=== PATIENT | male | born 2000 | race Caucasian/White ===

== ENCOUNTER 2024-10-20 12:27 | Emergency (ER) | payer MEDICAID, OTHER ==
[~2024-10-20] VITALS: Ht 188 cm; Wt 74.0 kg
[2024-10-20 12:27] VITALS: TEMP 98.4
[2024-10-20] MEDS ORDERED: OLOP0.1S7 OP (13:32)
--- NOTE | 2024-10-20 13:40 | ED.PDOC ---
Eye-HPI HPI Comments 24 M presents to the ER w/ no prior MHx associated to the c/c of eye itchiness. Pt reports on having right eye itchiness for 1 week w/ redness. Therapies tried; none Denies vision changes Denies eye discharge Denies hearing changes, nausea, vomiting Denies eye pain with movement, eye pain in general, difficulty keeping eye open, feeling of something stuck in the eye, sensitivity to light Chief Complaint: Eye Problem Time Seen by MD: 13:30 Primary Care Provider: NONE Reviewed Notes: Nurses Notes, Medications, Allergies Allergies: Coded Allergies: NO KNOWN ALLERGIES (Unverified , 12/28/09) Home Meds Active Scripts Olopatadine HCl (Pataday) 0.1 % Adriana, 1 APPLIC OP BID for 7 Days, #5 ML 0 Refills Prov:JULIENNE LANDRUM NP 10/20/24 Information Source: Patient Mode of Arrival: Ambulatory Timing: Days Duration: Since onset, Days Prehospital treatment: None Quality: Red Lids: Red Conjunctiva: Normal Cornea: Right eye Pupils: Normal EOM: Normal Fundus: Normal Slit lamp exam: Normal Anterior chamber: Normal Mouth: Normal ENT Ear Exam: Normal Nose: Normal Sinuses: Normal Oropharynx: Normal Onset: Spontaneous Throat Exposed to: None History of: None Last Tetanus: Unknown Associated signs and symptoms: None Past Medical History PAST MEDICAL HISTORY: Denies Surgical History: Denies all surgeries Family History Family History: Reviewed,noncontributory to illness, Unknown Social History Smoker: Non-Smoker Alcohol: Denies ETOH Use Drugs: Denies Drug Use Lives In: Home Constitutional: denies: chills, diaphoresis, fatigue, fever, malaise, sweats, weakness, others EENTM: reports: eye pain, eye redness; denies: blurred vision, double vision, ear bleeding, ear discharge, ear drainage, ear pain, ear ringing, hearing loss, mouth pain, mouth swelling, nasal discharge, nose bleeding, nose congestion, nose pain, photophobia, tearing, throat pain, throat swelling, voice changes, others Respiratory: denies: cough, hemoptysis, orthopnea, SOB at rest, shortness of breath, SOB with excertion, stridor, wheezing, others Cardiovascular: denies: chest pain, dizzy spells, diaphoresis, Dyspnea on exertion, edema, irregular heart beat, left arm pain, lightheadedness, palpitations, PND, syncope, others Gastrointestinal: denies: abdomen distended, abdominal pain, blood streaked bowels, constipated, diarrhea, dysphagia, difficulty swallowing, hematemesis, melena, nausea, poor appetite, poor fluid intake, rectal bleeding, rectal pain, vomiting, others Genitourinary: denies: burning, dysuria, flank pain, frequency, hematuria, incontinence, penile discharge, penile sore, pain, testicle pain, testicle swelling, urgency, others Neurological: denies: dizziness, fainting, headache, left sided numbness, left sided weakness, numbness, paresthesia, pre-existing deficit, right sided numbness, right sided weakness, seizure, speech problems, tingling, tremors, weakness, others Musculoskeletal: denies: back pain, gout, joint pain, joint swelling, muscle pain, muscle stiffness, neck pain, others Integumetry: denies: bruises, change in color, change in hair/nails, dryness, laceration, lesions, lumps, rash, wounds, others Allergic/Immunocompromised: denies: Difficulty Healing, Frequent Infections, Hives, Itching, others Hematologic/Lymphatic: denies: anemia, blood clots, easy bleeding, easy bruising, swollen glands, others Endocrine: denies: excessive hunger, excessive sweating, excessive thirst, excessive urination, flushing, intolerance to cold, intolerance to heat, unexplained weight gain, unexplained weight loss, others Psychiatric: denies: anxiety, bipolar disorder, depression, hopeless, panic disorder, schizophrenia, sleepless, suicidal, others All Other Systems: Reviewed and Negative Physical Exam General Appearance: No Apparent Distress, Normal HEENT: Normal ENT Inspection, Pharynx Normal, TMs Normal Neck: Full Range of Motion, Non-Tender, Normal, Normal Inspection Respiratory: Chest Non-Tender, Lungs Clear, No Accessory Muscle Use, No Respiratory Distress, Normal Breath Sounds Cardiovascular: No Edema, No JVD, No Murmur, No Gallop, Normal Peripheral Pulses, Regular Rate/Rhythm Breast Exam: Deferred Gastrointestinal: No Organomegaly, Non Tender, No Pulsatile Mass, Normal Bowel Sounds, Soft Genitalia: Deferred Pelvic: Deferred Rectal: Deferred Extremities: No calf tenderness, Normal capillary refill, Normal inspection, Normal range of motion, Non-tender, No pedal edema Musculoskeletal : Apperance: Normal Neurologic: Alert, 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 Was a procedure done?: No EENT DIFF Eye: Allergic, Viral, Other X-Ray, Labs, Meds, VS Vital Signs Date Time Temp Pulse Resp B/P (MAP) Pulse Ox O2 Delivery O2 Flow Rate FiO2 10/20/24 14:24 55 18 111/71 (84) 98 10/20/24 14:24 55 18 98 Room Air 10/20/24 12:27 98.4 68 15 133/75 (94) 98 98.4 X-Ray, Labs, Meds, VS Comment The patient was seen and evaluated in the emergency department today. The patient has had itchy and clear precipitant from their eye irritation. The patient denies any ocular pain. VSS. There is no evidence of corneal abrasion, infection, subconjunctival hemorrhage, or keratoconjunctivitis. The patient will be discharged home with Pataday and antihistamines. Advised to apply cool compresses to reduce eyelid and periorbital edema. Refrigerate the eye drops as the cold is soothing to inflamed eyes. Do not rub eyes ON REEVALUATION, PATIENT HAD SYMPTOMATIC IMPROVEMENT. PATIENT IS STABLE FOR DISCHARGE AT THIS TIME. EXTERNAL NOTES REVIEWED. TEST RESULTS AND DIAGNOSTIC IMAGING INTERPRETED. ALL DIAGNOSTIC FINDINGS, DISCHARGE CARE, EDUCATION AND INSTRUCTIONS PROVIDED FOLLOW-UP WITH PCP IN 2 TO 3 DAYS PATIENT VERBALIZED UNDERSTANDING AND AGREED TO TREATMENT PLAN VITAL SIGNS STABLE, AFEBRILE, NO ACUTE DISTRESS NOTED PATIENT AMBULATORY WITH STRONG STEADY GAIT ADVISED TO RETURN PRECAUTIONS FOR ANY NEW OR WORSENING SYMPTOMS, RETURN TO ER IMMEDIATELY FOR RE-EVALUATION PATIENT IS AWARE THAT THE PURPOSE OF THIS VISIT WAS FOR AN ACUTE MEDICAL EMERGENCY REQUIRING EMERGENT STABILIZATION. CHRONIC CONDITIONS, INCLUDING MALIGNANCIES HAVE NOT BEEN RULED OUT. PATIENT IS INSTRUCTED TO FOLLOW UP WITH PCP DIRECTED AND DISCHARGE INSTRUCTIONS FOR CONTINUED CARE AND WORKUP. IF UNABLE TO ARRANGE FOLLOW-UP, PATIENT IS TO RETURN TO THE EMERGENCY DEPARTMENT FOR REASSESSMENT. PATIENT (PARENT OR LEGAL GUARDIAN IF APPLICABLE) WAS GIVEN VERBAL AND WRITTEN DISCHARGE INSTRUCTIONS AND ACKNOWLEDGES UNDERSTANDING. Time of 1ST Reevaluation: 14:00 Reevaluation 1ST: Improved Patient Education/Counseling: Diagnosis, Treatment, Prognosis Family Education/Counseling: No Family Present SEPSIS Sepsis Screen Date sepsis recognized/suspect: Oct 20, 2024 Time Sepsis recognized/suspect: 1227 Recent Procedure: No On Antibiotic Therapy: No Respiratory Rate >20: No Heart Rate >90: No Temp<36 C (96.8 F) or >38.3 C: No SBP <90 or MAP <65 mmHG: No New Acute Mental Status Change: No Is the patient on CPAP, BIPAP,: No Vital Signs Date Time Temp Pulse Resp B/P (MAP) Pulse Ox O2 Delivery O2 Flow Rate FiO2 10/20/24 14:24 55 18 111/71 (84) 98 10/20/24 14:24 55 18 98 Room Air 10/20/24 12:27 98.4 68 15 133/75 (94) 98 98.4 Departure 1 Departure Time of Disposition: 14:00 Impression: Primary Impression: Allergic rhinitis Qualified Codes: J30.9 - Allergic rhinitis, unspecified Disposition: 01 HOME / SELF CARE / HOMELESS Condition: Stable e-Prescriptions Olopatadine HCl (Pataday) 0.1 % Adriana 1 APPLIC OP BID for 7 Days, #5 ML 0 Refills Prov: JULIENNE LANDRUM [employer] 10/20/24 Critical Care Note Critical Care Time?: No Stability Stability form required: No Heart Score Heart Score: Heart Score Response (Comments) Value History N/A 0 EKG N/A 0 Age N/A 0 Risk Factors N/A 0 Troponin N/A 0 Total 0 I personally scribed for JULIENNE LANDRUM NP ([email or web address]) on 10/20/24 at 13:40. Electronically submitted by Guillermo Marroquin ([email or web address]). JULIENNE LANDRUM [employer] EX[employer] Oct 20, 2024 13:40
[2024-10-20 14:24] VITALS: BP 111/71; PULSE 55; RESP 18; O2SAT 98
== END 2024-10-20 14:29 | disposition home or self-care (01) ==
LOC: ER 12:27
DX: J30.9 Allergic rhinitis, unspecified (principal)